=== PATIENT | male | born 1970 | race Hispanic/Latino ===

== ENCOUNTER 2020-04-16 02:27 | Emergency (ER) | payer OTHER ==
[2020-04-16] MEDS ORDERED: LIDOCAINE HCL 2% VISCOUS 15 ML UDCUP ONE (03:08)
[2020-04-16] MEDS ORDERED: IBUPROFEN 400 MG TABLET ONE (03:08)
[2020-04-16] MEDS ORDERED: GUAIFENESIN SUGAR-FREE 100 MG/5 ML UDCUP ONE (03:08)
[2020-04-16] MEDS ORDERED: MAG HYDROX/AL HYDROX/SIMETH ES 30 ML SUSP UDCUP ONE (03:08)
== END 2020-04-16 05:17 | disposition home or self-care (01) ==
LOC: EDH 02:27
DX: J06.9 Acute upper respiratory infection, unspecified (principal); B34.9 Viral infection, unspecified; Z20.828 Contact with and (suspected) exposure to other viral communicable diseases
CPT/HCPCS: 71045; 87426; 87804 ×2; 99284; U0003